=== PATIENT | female | born 1990 | race African-American/Black ===

== ENCOUNTER 2017-06-02 14:25 | Emergency (ER) | payer MEDICAID ==
[~2017-06-02] VITALS: Ht 167.6 cm; Wt 83.9 kg
[2017-06-02] MEDS: cloNIDine HCL 0.1 MG TAB PO ONE ×2 (15:26→17:14)
[2017-06-02] MEDS: cloNIDine HCL 0.1 MG TAB ONE (15:27)
[2017-06-02] MEDS: METOPROLOL TARTRATE 50 MG TAB PO ONE (17:14)
[2017-06-02] MEDS: HCTZ 25 MG TAB PO ONE (17:14)
[2017-06-02 17:55] VITALS: BP 152/116
== END 2017-06-02 18:16 | disposition home or self-care (01) ==
LOC: ER 14:25
DX: J20.9 Acute bronchitis, unspecified (principal); I10 Essential (primary) hypertension; F17.210 Nicotine dependence, cigarettes, uncomplicated; F12.10 Cannabis abuse, uncomplicated; Z98.51 Tubal ligation status; E78.5 Hyperlipidemia, unspecified
CPT/HCPCS: 71046